=== PATIENT | female | born 1980 | race Caucasian/White ===

== ENCOUNTER 2017-04-22 02:20 | Emergency (ER) | payer BC ==
[2017-04-22 02:32] VITALS: BP 120/80; BMI 37.0
--- NOTE | 2017-04-22 03:20 | DR.GENAD ---
HPI - PCP Primary Care Physician: Chinyere Lara - Complaint/Symptoms Chief Complaint Doctors Comments: Patient states that she has been throwing up every since returning from [place]. She has not been able to hold anything down. Chief Complaint:: " She got hot this morning and had some heat exhaustion and has been throwing up every since. - Source History Provided: Patient - Mode of Arrival Mode of Arrival: Ambulatory - Timing Onset of Chief Complaint: 04/21/17 PMH - PMH Past Medical History: Yes Past Medical History: Anxiety, Asthma, Depression, Diabetes, Hypertension Past Medical History Comment: Fibromyalgia Past Surgical History: Yes Surgical History: COLORER MACHINE Surgery, Hysterectomy, Organ Transplant - Family History History of Family Medical Conditions: Yes Family Medical History: Diabetes Mellitus, Hypertension - Social History Alcohol Use: None Do you use any recreational Drugs:: No Lives With: Family Lives Where: Home - infectious screening Have you traveled outside the country in the last 6 months?: No ROS - Review of Systems Eyes: No Symptoms Reported ENTM: No Symptoms Reported Respiratoy: No Symptoms Reported Cardiovascular: No Symptoms Reported Gastrointestinal/Abdominal: No Symptoms Reported Genitourinary: No Symptoms Reported Neurological: No Symptoms Reported, Emotional Problems Musculoskeletal: No Symptoms Reported Integumentary: No Symptoms Reported Hematologic/Lymphatic: No Symptoms Reported Endocrine: No Symptoms Reported Psychiatric: No Symptoms Reported All Other Systems: Reviewed and Negative PE - Vital Signs Vitals: Temperature 97.8 F Pulse Rate 89 Respiratory Rate 18 Blood Pressure 120/80 O2 Sat by Pulse Oximetry 99 - General Limitations: No Limitations General Appearance: Alert - Head Head Exam: Normal Inspection, Atraumatic - Eyes Eye exam: Normal Appearance, PERRL, EOMI - ENT ENT Exam: Normal Exam External Ear Exam: Normal External Inspection TM/Canal Exam: Bilateral Normal Nose Exam: Normal Nose Exam Mouth Exam: Normal Inspection Throat Exam: Normal Inspection - Neck Neck Exam: Normal Inspection - Chest Chest Inspection: Normal Inspection - Respiratory Respiratory Exam: Normal Lung Sounds Bilat Respiratory Exam: Bilateral Clear to Auscultation - Cardiovascular Cardiovascular Exam: Regular Rate - Abdominal Exam Abdominal Exam: Normal Inspection Abdominal Tenderness: negative: RUQ, RLQ, LUQ, LLQ, Epigastrium, Suprapubic, Diffuse, Mild, Moderate, Severe, Other - Extremities Extremities Exam: Normal Inspection, Full ROM - Back Back Exam: Normal Inspection - Neurologic Neurological Exam: Alert, Oriented X3, CN II-XII Intact - Psychiatric Psychiatric Exam: Normal Affect, Normal Mood - Skin Skin Exam: Warm, Dry ROR - Labs Reviewed Laboratory Results Reviewed?: Yes (positive strep) Result Diagrams: 04/22/17 03:30 04/22/17 03:30 Laboratory: WBC 10.0 X10^3/uL (3.6-10.0) 04/22/17 03:30 RBC 4.68 X10^6/uL (3.5-5.4) 04/22/17 03:30 Hgb 13.6 g/dL (12.0-16.0) 04/22/17 03:30 Hct 39.9 % (36.0-47.0) 04/22/17 03:30 MCV 85.4 fL (80.0-100.0) 04/22/17 03:30 MCH 29.1 pg (27.0-34.0) 04/22/17 03:30 MCHC 34.1 g/dL (33.0-35.0) 04/22/17 03:30 RDW 13.9 % (11.6-16.5) 04/22/17 03:30 Plt Count 395 X10^3/uL (150.0-450.0) 04/22/17 03:30 MPV 7.7 fL (7.4-11.0) 04/22/17 03:30 Neut % 83.8 % (42.0-75.0) H 04/22/17 03:30 Lymph % 9.3 % (21.0-51.0) L 04/22/17 03:30 [place] % 6.1 % (0.0-13.0) 04/22/17 03:30 Eos % 0.5 % (0.9-2.9) L 04/22/17 03:30 Baso % 0.3 % (0.2-1.0) 04/22/17 03:30 Neut # 8.4 x10^3/uL (2.2-4.8) H 04/22/17 03:30 Lymph # 0.9 X10^3/uL (1.3-2.9) L 04/22/17 03:30 [place] # 0.6 x10^3/uL (0.3-0.8) 04/22/17 03:30 Eos # 0.1 x10^3/uL (0.0-0.2) 04/22/17 03:30 Baso # 0.0 X10^3/uL (0.0-0.1) 04/22/17 03:30 Absolute Nucleated RBC 0.0 /100WBC 04/22/17 03:30 Sodium 136 mmol/L (136-145) 04/22/17 03:30 Corrected Sodium 138 mmol/L (136-145) 04/22/17 03:30 Potassium 2.9 mmol/L (3.5-5.1) L* 04/22/17 03:30 Chloride 100 mmol/L (98-107) 04/22/17 03:30 Carbon Dioxide 24.1 mmol/L (21-32) 04/22/17 03:30 BUN 17 mg/dL (7-18) 04/22/17 03:30 Creatinine 0.87 mg/dL (0.55-1.02) 04/22/17 03:30 Est GFR (MDRD) Af Amer > 60 (>60) 04/22/17 03:30 Est GFR (MDRD) Non-Af > 60 (>60) 04/22/17 03:30 Glucose 169 mg/dL (65-99) H 04/22/17 03:30 Calcium 8.2 mg/dL (8.5-10.1) L 04/22/17 03:30 Corrected Calcium TNP 04/22/17 03:30 Total Bilirubin 0.60 mg/dL (0.2-1.0) 04/22/17 03:30 AST 19 Units/L (15-37) 04/22/17 03:30 ALT 44 Units/L (12-78) 04/22/17 03:30 Alkaline Phosphatase 80 Units/L (46-116) 04/22/17 03:30 C-Reactive Protein 28.90 mg/L (0-3.0) H 04/22/17 03:30 Total Protein 7.2 g/dL (6.4-8.2) 04/22/17 03:30 Albumin 3.5 g/dL (3.4-5.0) 04/22/17 03:30 Globulin 3.7 g/dL (2.5-4.5) 04/22/17 03:30 Albumin/Globulin Ratio 0.9 Ratio (1.1-2.1) L 04/22/17 03:30 Streptococcus Screen Positive (NEGATIVE) A 04/22/17 03:55 - Diagnosis Discharge Problem: Gastroenteritis, Strep pharyngitis, Dehydration, mild, Hypokalemia - Discharge Plan Condition: Stable - Follow ups/Referrals Follow ups/Referrals: CHINYERE LARA [Primary Care Provider] - 3 days - Instructions
[2017-04-22] MEDS ORDERED: NS 1000 ML 1,000 ML IV ONE (03:25)
[2017-04-22] MEDS ORDERED: ZOFRAN INJ 4 MG VIAL IVP ONE (03:25)
[2017-04-22] MEDS ORDERED: NS 1000 ML 1,000 ML ONE (03:31)
[2017-04-22] MEDS ORDERED: ZOFRAN INJ 4 MG VIAL ONE (03:31)
[2017-04-22 03:39] LABS: BASOPHILS % (AUTO) 0.3 % (0.2-1.0); EOSINOPHILS # (AUTO) 0.1 x10^3/uL (0.0-0.2); EOSINOPHILS % (AUTO) 0.5 % (0.9-2.9); HEMATOCRIT 39.9 % (36.0-47.0); HEMOGLOBIN 13.6 g/dL (12.0-16.0); LYMPHOCYTES # (AUTO) 0.9 X10^3/uL (1.3-2.9); LYMPHOCYTES % (AUTO) 9.3 % (21.0-51.0); MEAN CORPUSCULAR HEMOGLOBIN 29.1 pg (27.0-34.0); MEAN CORPUSCULAR HGB CONC 34.1 g/dL (33.0-35.0); MEAN CORPUSCULAR VOLUME 85.4 fL (80.0-100.0); MEAN PLATELET VOLUME 7.7 fL (7.4-11.0); MONOCYTES # (AUTO) 0.6 x10^3/uL (0.3-0.8); MONOCYTES % (AUTO) 6.1 % (0.0-13.0); NEUTROPHILS # (AUTO) 8.4 x10^3/uL (2.2-4.8); NEUTROPHILS % (AUTO) 83.8 % (42.0-75.0); PLATELET COUNT 395 X10^3/uL (150.0-450.0); RED BLOOD COUNT 4.68 X10^6/uL (3.5-5.4); RED CELL DISTRIBUTION WIDTH 13.9 % (11.6-16.5)
[2017-04-22 03:42] LABS: BLOOD UREA NITROGEN 17 mg/dL (7-18); CALCIUM 8.2 mg/dL (8.5-10.1); CARBON DIOXIDE 24.1 mmol/L (21-32); CHLORIDE 100 mmol/L (98-107); COR NA(FOR HYPERGLY) 138 mmol/L (136-145); CREATININE 0.87 mg/dL (0.55-1.02); GLUCOSE 169 mg/dL (65-99); SODIUM 136 mmol/L (136-145); eGFR BLACK RACES > 60 (>60); eGFR NON BLACK RACES > 60 (>60)
[2017-04-22 03:46] LABS: ALANINE AMINOTRANSFERASE 44 Units/L (12-78); ALBUMIN 3.5 g/dL (3.4-5.0); ALKALINE PHOSPHATASE 80 Units/L (46-116); ASPARTATE AMINO TRANSFERASE 19 Units/L (15-37); TOTAL PROTEIN 7.2 g/dL (6.4-8.2)
[2017-04-22] MEDS ORDERED: POTASSIUM CHLORIDE LIQ 20 MEQ UDC PO ONE (04:11)
[2017-04-22] MEDS ORDERED: POTASSIUM CHLORIDE LIQ 20 MEQ UDC ONE (04:28)
[2017-04-22 04:39] LABS: APPEARANCE,URINE CLEAR (CLEAR); COLOR,URINE YELLOW (YELLOW)
[2017-04-22 04:41] LABS: BACTERIA,URINE NEGATIVE /HPF (NEGATIVE); BILIRUBIN,URINE NEGATIVE (NEGATIVE); BLOOD/HEMOGLOBIN,URINE NEGATIVE (NEGATIVE); GLUCOSE, URINE NEGATIVE (NEGATIVE); KETONES,URINE NEGATIVE (NEGATIVE); LEUKOCYTE ESTERASE ,URINE 1+ (NEGATIVE); NITRITES,URINE NEGATIVE (NEGATIVE); PROTEIN,URINE NEGATIVE (NEGATIVE); RBC,URINE NONE SEEN /HPF (NEGATIVE); SQUAMOUS EPITHELIAL CELL,UR FEW /HPF (NEGATIVE); UROBILINOGEN,URINE NORMAL (NORMAL)
[2017-04-22] MEDS ORDERED: BICILLIN L-A IM ONE ×2 (04:55→04:57)
== END 2017-04-22 05:12 | disposition home or self-care (01) ==
LOC: ER 02:20
DX: K52.89 Other specified noninfective gastroenteritis and colitis (principal); J02.0 Streptococcal pharyngitis; E86.0 Dehydration; E87.6 Hypokalemia
CPT/HCPCS: 36415; 80053; 81001; 85025; 86140; 87880; 96365; 96372; 96374; 99283; A4222; J0570; J2405